=== PATIENT | female | born 1955 | race Caucasian/White ===

== ENCOUNTER 2022-02-05 09:10 | Inpatient (IN) | payer OTHER ==
[~2022-02-05] VITALS: Ht 154.9 cm; Wt 72.6 kg
[2022-02-05] MEDS ORDERED: SODIUM CHLORIDE 0.9% 1000ML 1,000 ML IV STA (09:18)
[2022-02-05] MEDS ORDERED: SODIUM CHLORIDE 0.9% 1000ML 1,000 ML ONE (09:44)
[2022-02-05 09:45] LABS: BASOPHILS % 0.7 % (0.0-1.0); EOSINOPHILS % 0.7 % (0.0-6.0); HEMATOCRIT 40.3 % (34.2-44.1); HEMOGLOBIN 12.8 g/dL (12.0-16.0); LYMPHOCYTES # (AUTO) 0.8 (1.0-3.2); LYMPHOCYTES % 16.8 % (18.0-39.1); MEAN CORPUSCULAR HEMOGLOBIN 26.6 pg (28-32); MEAN CORPUSCULAR HGB CONC 31.8 g/dL (31-35); MEAN CORPUSCULAR VOLUME 83.6 fL (81-99); MONOCYTES # (AUTO) 0.7 (0.2-0.8); MONOCYTES % 16.2 % (4.4-11.3); NEUTROPHILS % 65.4 % (38.7-80.0); PLATELET COUNT 264 x10e3/uL (140-360); RED BLOOD COUNT 4.82 x10e6/uL (3.6-5.1); RED CELL DISTRIBUTION WIDTH 14.7 % (11.7-14.4)
[2022-02-05 10:11] LABS: ALANINE AMINOTRANSFERASE 10 IU/L (0-55); ALBUMIN/GLOBULIN RATIO 0.8 (0.8-2.0); ALKALINE PHOSPHATASE 99 IU/L (40-150); ANION GAP 15.7 mmol/L (8-16); BLOOD UREA NITROGEN 7 mg/dL (7-26); BUN/CREATININE RATIO 9 (6-25); CALCIUM 8.2 mg/dL (8.4-10.2); CARBON DIOXIDE 23 mmol/L (22-29); CHLORIDE 105 mmol/L (98-107); CREATINE KINASE 34 IU/L (29-168); CREATININE, SERUM 0.79 mg/dL (0.57-1.11); EST GLOMERULAR FILTRATION RATE 72 ML/MIN (60-); GLUCOSE 128 mg/dL (74-118); MAGNESIUM 1.7 MG/DL (1.3-2.1); POTASSIUM 3.7 mmol/L (3.5-5.1); SODIUM 140 mmol/L (136-145)
[2022-02-05 10:22] LABS: INR 0.94; PARTIAL THROMBOPLASTIN TIME 25.9 seconds (23.8-35.5); PROTHROMBIN TIME 13.4 seconds (11.9-14.5)
[2022-02-05 11:11] LABS: CLARITY,URINE CLOUDY (CLEAR); COLOR,URINE YELLOW (YELLOW); KETONES,URINE NEGATIVE (NEGATIVE); LEUKOCYTE ESTERASE ,URINE NEGATIVE (NEGATIVE); NITRITE,URINE NEGATIVE (NEGATIVE); PROTEIN,URINE DIPSTICK 2+ (NEGATIVE); URINE UROBILINOGEN 0.2 mg/dL (0.2 - 1)
[2022-02-05 11:23] LABS: AMORPHOUS SEDIMENT,URINE MANY (FEW); BACTERIA,URINE FEW /HPF; EPITHELIAL CELLS,URINE FEW /LPF
[2022-02-05] MEDS: SODIUM CHLORIDE 0.9% 1000ML 1,000 ML IV SCH (13:06)
[2022-02-05 15:34] LABS: CREATINE KINASE 41 IU/L (29-168)
[2022-02-05] MEDS: ONDANSETRON HCL INJ 2MG/ML 2ML 2 MG/ML VIAL IV PRN (16:45)
[2022-02-05] MEDS ORDERED: DICYCLOMINE HCL 20 MG TAB PO PRN (17:45)
[2022-02-05] MEDS: METOPROLOL TARTRATE 25 MG TAB PO SCH (17:59)
[2022-02-05] MEDS ORDERED: BRILINTA90 MG PO (18:02)
[2022-02-05 20:00] VITALS: BP 114/57
[2022-02-05 20:52] VITALS: BP 111/46
[2022-02-05] MEDS ORDERED: PANTOPRAZOLE SO40 MG PO (22:08)
[2022-02-05] MEDS ORDERED: LIPITOR20 MG PO (22:08)
[2022-02-05] MEDS ORDERED: VITAMIN D350 MCG PO (22:08)
[2022-02-05] MEDS ORDERED: CO Q10200 MG PO (22:08)
[2022-02-05] MEDS ORDERED: ASPIRIN CHEW81 MG PO (22:08)
[2022-02-05] MEDS ORDERED: METOPROLOL TART25 MG PO (22:08)
[2022-02-05] MEDS ORDERED: HYDRALAZINE HCL 20 MG/ML VIAL IV PRN (22:15)
[2022-02-05] MEDS: ATORVASTATIN 40 MG TAB PO SCH (22:46)
[2022-02-06] VITALS (7 sets, daily range): BP systolic 107–125; BP diastolic 51–69
[2022-02-06] MEDS: SODIUM CHLORIDE 0.9% 1000ML 1,000 ML IV SCH (02:53)
[2022-02-06] MEDS ORDERED: CEFTRIAXONE 1 GM VIAL ONE (02:54)
[2022-02-06 05:08] LABS: BASOPHILS % 0.9 % (0.0-1.0); EOSINOPHILS % 0.9 % (0.0-6.0); HEMATOCRIT 34.8 % (34.2-44.1); LYMPHOCYTES # (AUTO) 0.8 (1.0-3.2); LYMPHOCYTES % 23.8 % (18.0-39.1); MEAN CORPUSCULAR HEMOGLOBIN 26.3 pg (28-32); MEAN CORPUSCULAR HGB CONC 31.6 g/dL (31-35); MEAN CORPUSCULAR VOLUME 83.3 fL (81-99); MONOCYTES # (AUTO) 0.7 (0.2-0.8); MONOCYTES % 19.4 % (4.4-11.3); NEUTROPHILS # (AUTO) 1.9 (2.1-6.9); NEUTROPHILS % 54.4 % (38.7-80.0); PLATELET COUNT 200 x10e3/uL (140-360); RED BLOOD COUNT 4.18 x10e6/uL (3.6-5.1); RED CELL DISTRIBUTION WIDTH 14.5 % (11.7-14.4)
[2022-02-06] MEDS ORDERED: IOPAMIDOL 370 MG/ML 100 ML INFUS..BTL INJ ONE (06:06)
[2022-02-06 07:04] LABS: CREATINE KINASE 58 IU/L (29-168)
[2022-02-06] MEDS ORDERED: TICAGRELOR 90 MG TABLET PO SCH (09:00)
[2022-02-06] MEDS ORDERED: ASPIRIN 81 MG CHEW TAB PO SCH (09:00)
[2022-02-06 09:15] LABS: ALBUMIN 2.6 g/dL (3.5-5.0); ALBUMIN/GLOBULIN RATIO 0.9 (0.8-2.0); ANION GAP 11.6 mmol/L (8-16); CREATININE, SERUM 0.68 mg/dL (0.57-1.11)
[2022-02-06 09:24] LABS: POTASSIUM 2.6 mmol/L (3.5-5.1)
[2022-02-06 09:37] LABS: CHOL/HDL RATIO 2.3 (3.0-3.6)
[2022-02-06] MEDS: METOPROLOL TARTRATE 25 MG TAB PO SCH ×2 (09:49→16:26)
[2022-02-06] MEDS: PANTOPRAZOLE SOD 40 MG TABEC PO SCH (09:49)
[2022-02-06] MEDS: ONDANSETRON HCL INJ 2MG/ML 2ML 2 MG/ML VIAL IV PRN ×2 (10:00→16:27)
[2022-02-06] MEDS ORDERED: PNEUMOCOCCAL VACCINE POLYVALENT 23 MCG/0.5 ML VIAL IM SCH (10:00)
[2022-02-06] MEDS ORDERED: POTASSIUM CHLORIDE 20 MEQ TAB CR PO ONE (10:30)
[2022-02-06] MEDS: METRONIDAZOLE 500MG/NS 100ML 100 ML IV SCH ×2 (11:04→16:29)
[2022-02-06] MEDS: KCL 40MEQ/0.9% SOD CHL 1,000 ML IV SCH ×2 (15:29→22:00)
[2022-02-06 18:38] LABS: CREATINE KINASE 75 IU/L (29-168)
[2022-02-06] MEDS: ATORVASTATIN 40 MG TAB PO SCH (21:13)
[2022-02-07] VITALS: BP 116/50
[2022-02-07] MEDS ORDERED: BISACODYL 5 MG TAB EC PO ONE ×2 (00:15→00:45)
[2022-02-07 00:53] LABS: OCCULT BLOOD STOOL POSITIVE (NEGATIVE)
[2022-02-07] MEDS: METRONIDAZOLE 500MG/NS 100ML 100 ML IV SCH ×3 (02:00→17:34)
[2022-02-07 04:00] VITALS: BP 137/54
[2022-02-07] MEDS: ONDANSETRON HCL INJ 2MG/ML 2ML 2 MG/ML VIAL IV PRN (04:00)
[2022-02-07] MEDS ORDERED: CITRATE OF MAGNESIA 300ML BOTTLE PO ONE ×2 (05:00→06:00)
[2022-02-07 06:32] LABS: BASOPHILS # (AUTO) 0.1 (0.0-0.1); BASOPHILS % 0.8 % (0.0-1.0); EOSINOPHILS % 0.5 % (0.0-6.0); HEMATOCRIT 40.1 % (34.2-44.1); HEMOGLOBIN 12.2 g/dL (12.0-16.0); LYMPHOCYTES # (AUTO) 1.1 (1.0-3.2); LYMPHOCYTES % 16.9 % (18.0-39.1); MEAN CORPUSCULAR HEMOGLOBIN 26.3 pg (28-32); MEAN CORPUSCULAR HGB CONC 30.4 g/dL (31-35); MEAN CORPUSCULAR VOLUME 86.6 fL (81-99); MONOCYTES # (AUTO) 0.8 (0.2-0.8); MONOCYTES % 11.9 % (4.4-11.3); NEUTROPHILS # (AUTO) 4.3 (2.1-6.9); NEUTROPHILS % 68.3 % (38.7-80.0); PLATELET COUNT 241 x10e3/uL (140-360); RED BLOOD COUNT 4.63 x10e6/uL (3.6-5.1); RED CELL DISTRIBUTION WIDTH 14.7 % (11.7-14.4)
[2022-02-07 07:01] LABS: ANION GAP 12.3 mmol/L (8-16); CALCIUM 8.6 mg/dL (8.4-10.2); CREATININE, SERUM 0.77 mg/dL (0.57-1.11); POTASSIUM 3.3 mmol/L (3.5-5.1)
[2022-02-07 07:28] VITALS: BP 133/64
[2022-02-07] MEDS: PANTOPRAZOLE SOD 40 MG TABEC PO SCH (09:29)
[2022-02-07] MEDS: KCL 40MEQ/0.9% SOD CHL 1,000 ML IV SCH ×2 (09:29→23:33)
[2022-02-07] MEDS: METOPROLOL TARTRATE 25 MG TAB PO SCH ×2 (09:30→17:00)
[2022-02-07 11:25] LABS: LYMPHOCYTES % (MANUAL) 16 % (19-48); METAMYELOCYTES % (MANUAL) 1 % (0-0); MONOCYTES % (MANUAL) 15 % (3.4-9.0); NEUTROPHILS % (MANUAL) 67 % (40-74); PLATELET ESTIMATE ADEQUATE; PLATELET MORPHOLOGY COMMENT NORMAL; RBC MORPHOLOGY COMMENT NORMAL
[2022-02-07] MEDS ORDERED: HYOSCYAMINE SULFATE 0.5 MG/ML INJ ONE ×3 (13:05→14:05)
[2022-02-07 13:41] LABS: WBC,FECAL (FECAL LACTOFERRIN) POSITIVE (NEGATIVE)
[2022-02-07] MEDS ORDERED: PROPOFOL IV EMULSION 10 MG/ML 20 ML VIAL ONE (14:05)
[2022-02-07] MEDS ORDERED: MIDAZOLAM HCL 2 MG/2 ML VIAL ONE (14:05)
[2022-02-07 14:45] LABS: C DIFFICILE TOXIN A&B AMP PROB NEGATIVE (NEGATIVE)
[2022-02-07 14:45] LABS: C DIFFICILE TOXIN A&B AMP PROB NEGATIVE (NEGATIVE)
[2022-02-07 15:40] VITALS: BP 114/62
[2022-02-07] MEDS: DICYCLOMINE HCL 20 MG TAB PO SCH ×2 (18:38→23:33)
[2022-02-07 20:00] VITALS: BP 114/62
[2022-02-07 20:14] VITALS: BP 106/56
[2022-02-07] MEDS: ATORVASTATIN 40 MG TAB PO SCH (23:33)
[2022-02-08] VITALS: BP 100/52
[2022-02-08] MEDS: METRONIDAZOLE 500MG/NS 100ML 100 ML IV SCH ×2 (03:04→09:10)
[2022-02-08 04:00] VITALS: BP 140/58
[2022-02-08] MEDS: KCL 40MEQ/0.9% SOD CHL 1,000 ML IV SCH ×2 (04:00→14:00)
[2022-02-08 07:26] LABS: ALBUMIN 2.4 g/dL (3.5-5.0); CALCIUM 7.3 mg/dL (8.4-10.2); CREATININE, SERUM 0.72 mg/dL (0.57-1.11)
[2022-02-08 07:56] VITALS: BP 136/56
[2022-02-08 08:00] VITALS: BP 136/56
[2022-02-08] MEDS: METOPROLOL TARTRATE 25 MG TAB PO SCH (09:00)
[2022-02-08] MEDS: DICYCLOMINE HCL 20 MG TAB PO SCH ×2 (09:00→13:00)
[2022-02-08 12:03] VITALS: BP 102/84
[2022-02-08 16:12] VITALS: BP 144/63
== END 2022-02-08 18:01 | disposition home or self-care (01) | DRG 872 ==
LOC: ER 09:20 → ERHOLD 11:28 → MED/SURG2 18:49 → OBSVTOIN 02-06 09:13
PROVIDERS: ADMIT Internal Medicine; ATTEND Internal Medicine
PROC: 3E04329 Introduction of Other Anti-infective into Central Vein, Percutaneous Approach (ICD-10-PCS; 2022-02-06)
PROC: 0DBP8ZX Excision of Rectum, Via Natural or Artificial Opening Endoscopic, Diagnostic (ICD-10-PCS; 2022-02-07)
PROC: 0DBE8ZX Excision of Large Intestine, Via Natural or Artificial Opening Endoscopic, Diagnostic (ICD-10-PCS; 2022-02-07)
PROC: 0D748ZZ Dilation of Esophagogastric Junction, Via Natural or Artificial Opening Endoscopic (ICD-10-PCS; principal; 2022-02-07 11:58)
PROC: 0DB78ZX Excision of Stomach, Pylorus, Via Natural or Artificial Opening Endoscopic, Diagnostic (ICD-10-PCS; 2022-02-07 11:58)
DX: A41.9 Sepsis, unspecified organism (principal); K63.3 Ulcer of intestine; N39.0 Urinary tract infection, site not specified; A09 Infectious gastroenteritis and colitis, unspecified; K22.2 Esophageal obstruction; E78.5 Hyperlipidemia, unspecified; Z95.5 Presence of coronary angioplasty implant and graft; I10 Essential (primary) hypertension; E78.00 Pure hypercholesterolemia, unspecified; I25.2 Old myocardial infarction; K44.9 Diaphragmatic hernia without obstruction or gangrene; K62.89 Other specified diseases of anus and rectum; K64.8 Other hemorrhoids; R15.2 Fecal urgency; K21.9 Gastro-esophageal reflux disease without esophagitis; R94.31 Abnormal electrocardiogram [ECG] [EKG]; I25.10 Atherosclerotic heart disease of native coronary artery without angina pectoris; Z20.822 Contact with and (suspected) exposure to COVID-19; Z87.891 Personal history of nicotine dependence; Z88.0 Allergy status to penicillin
CPT/HCPCS: 36415; 43239; 45378; 71046; 74022; 74177; 74181; 80048; 80053; 80061; 81001; 82270; 82550; 82553; 83630; 83735; 83993; 84100; 84443; 84484; 85025; 85610; 85730; 87040; 87045; 87086; 87177; 87328; 87493; 88304; 88305; 88312; 93005; 93306; 99284; G0378; J0696; J1980; J2250; J2405; J7030; Q9967; U0002

== ENCOUNTER 2025-02-12 17:07 | Emergency (ER) | payer MEDICARE, OTHER ==
[~2025-02-12] VITALS: Ht 152.4 cm; Wt 70.3 kg
[~2025-02-12 17:07] MED LIST: ASPIRIN CHEW81 MG PO; BRILINTA90 MG PO; CO Q10200 MG PO; LIPITOR20 MG PO; METOPROLOL TART25 MG PO; PANTOPRAZOLE SO40 MG PO; VITAMIN D350 MCG PO
[2025-02-12 18:45] LABS: CLARITY,URINE CLOUDY (CLEAR); COLOR,URINE RED (YELLOW)
[2025-02-12 18:46] LABS: BILIRUBIN,URINE SMALL (NEGATIVE); GLUCOSE, URINE NEGATIVE (NEGATIVE); KETONES,URINE TRACE (NEGATIVE); LEUKOCYTE ESTERASE ,URINE SMALL (NEGATIVE); NITRITE,URINE POSITIVE (NEGATIVE); PH,URINE 5.5 (5 - 7); PROTEIN,URINE DIPSTICK 2+ (NEGATIVE); URINE UROBILINOGEN 1 mg/dL (0.2 - 1)
[2025-02-12 18:52] LABS: BASOPHILS % 0.4 % (0.0-1.0); EOSINOPHILS # (AUTO) 0.1 (0.0-0.4); EOSINOPHILS % 1.1 % (0.0-6.0); HEMOGLOBIN 10.5 g/dL (12.0-16.0); LYMPHOCYTES # (AUTO) 1.2 (1.0-3.2); LYMPHOCYTES % 12.8 % (18.0-39.1); MEAN CORPUSCULAR HEMOGLOBIN 25.4 pg (28-32); MEAN CORPUSCULAR HGB CONC 30.9 g/dL (31-35); MEAN CORPUSCULAR VOLUME 82.3 fL (81-99); MONOCYTES # (AUTO) 0.7 (0.2-0.8); MONOCYTES % 7.4 % (4.4-11.3); NEUTROPHILS # (AUTO) 7.3 (2.1-6.9); NEUTROPHILS % 77.5 % (38.7-80.0); PLATELET COUNT 238 x10e3/uL (140-360); RED BLOOD COUNT 4.13 x10e6/uL (3.6-5.1); RED CELL DISTRIBUTION WIDTH 17.2 % (11.7-14.4); WHITE BLOOD COUNT 9.42 x10e3/uL (4.8-10.8)
[2025-02-12 19:05] LABS: RBC,URINE >50 /HPF (0-5); WBC,URINE (MAN) 0-5 /HPF (0-5)
[2025-02-12 19:08] LABS: BACTERIA,URINE FEW /HPF
[2025-02-12] MEDS: SODIUM CHLORIDE 0.9% 1000ML 1,000 ML IV STA (19:16)
[2025-02-12 19:17] LABS: ALBUMIN 3.3 g/dL (3.5-5.0); ALBUMIN/GLOBULIN RATIO 1.1 (0.8-2.0); BILIRUBIN,TOTAL 0.4 mg/dL (0.2-1.2); CALCIUM 9.2 mg/dL (8.4-10.2); CREATININE, SERUM 0.85 mg/dL (0.57-1.11); TOTAL PROTEIN 6.4 g/dL (6.5-8.1)
[2025-02-12 19:23] LABS: TROPONIN I 0.002 ng/mL (0-0.300)
[2025-02-12] MEDS ORDERED: IOPAMIDOL 370 MG/ML 100 ML INFUS..BTL INJ ONE (19:47)
[2025-02-12] MEDS ORDERED: AUGMENTIN 500-1 EACH PO (22:09)
[2025-02-12 22:18] VITALS: PULSE 64; RESP 18; TEMP 98.5; O2SAT 100
== END 2025-02-12 22:17 | disposition home or self-care (01) ==
LOC: ER 17:11
DX: N93.8 Other specified abnormal uterine and vaginal bleeding (principal); N76.5 Ulceration of vagina; K44.9 Diaphragmatic hernia without obstruction or gangrene; K76.0 Fatty (change of) liver, not elsewhere classified; K80.20 Calculus of gallbladder without cholecystitis without obstruction; N20.0 Calculus of kidney; I10 Essential (primary) hypertension; E78.5 Hyperlipidemia, unspecified; I25.10 Atherosclerotic heart disease of native coronary artery without angina pectoris; K21.9 Gastro-esophageal reflux disease without esophagitis; F41.9 Anxiety disorder, unspecified; I25.2 Old myocardial infarction
CPT/HCPCS: 36415; 74177; 76856; 80053; 81001; 82550; 83690; 84484; 85025; 99284; Q9967